=== PATIENT | female | born 1985 | race American Indian/Alaskan Native ===

== ENCOUNTER 2017-03-24 07:41 | Inpatient (IN) | payer SELFPAY ==
[~2017-03-24 07:41] MED LIST: ANCEF/STERILE WATER 2 GM/20 ML 2 GM/20 ML SYRINGE IV NR; APRESOLINE IV PRN; LOVENOX SUB-Q NR; NORCO PO PRN; REGLAN IV PRN; ZOFRAN IV PRN
[2017-03-24] MEDS ORDERED: WATER FOR IRRIG STERILE IR ONE (07:56)
[2017-03-24] MEDS ORDERED: FLAGYL 500 MG/100 ML 500 MG/100 ML BAG IV NR (09:00)
--- NOTE | 2017-03-24 09:16 | Anesthesia Day of Surgery ---
Anesthesia Day of Surgery - Day of Surgery Patient Examined: Yes Patient H&P Reviewed: Yes Patient is NPO: Yes
--- NOTE | 2017-03-24 09:16 | Anesthesia Consultation ---
Anesthesia Consult and Med Hx Date of service: 03/24/17 - Airway Anesthetic Teeth Evaluation: Good ROM Head & Neck: Adequate Mental/Hyoid Distance: Adequate Mallampati Class: Class II Intubation Access Assessment: Probably Good - Pulmonary Exam CTA: Yes - Cardiac Exam Cardiac Exam: RRR - Pre-Operative Health Status ASA Pre-Surgery Classification: ASA3 Proposed Anesthetic Plan: General - Pulmonary Hx Sleep Apnea: Yes (uses cpap) - Cardiovascular System Hx Heart Murmur: Yes - Central Nervous System Hx Psychiatric Problems: No - Other Systems Hx Alcohol Use: Yes (occa) Hx Substance Use: No Hx Cancer: No Hx Obesity: Yes
[2017-03-24] MEDS ORDERED: MARCAINE 0.5% 30 ML INFILTRATI ONE ×2 (09:23→11:09)
[2017-03-24] MEDS ORDERED: XYLOCAINE 1% 20 mL ONE ×2 (09:23→11:10)
[2017-03-24 09:33] LABS: Bacteria,Urine 1+ /HPF (Negative); Bilirubin,Urine NEG (Negative); Blood,Urine SM (Negative); Ketones,Urine TR mg/dL (Negative); Leukocyte Esterase,Urine NEG (Negative); Mucus,Urine FEW /HPF; Nitrite,Urine NEG (Negative); Protein,Urine <15 mg/dL mg/dL (Negative); Urobilinogen,Urine < 2.0 mg/dL (<2.0); WBC,Urine < 1.0 /HPF (0.0-6.0)
[2017-03-24] MEDS: LACTATED RINGERS 1,000 ML IV SCH ×2 (09:40→14:47)
[2017-03-24] MEDS ORDERED: DIPRIVAN 10 MG/ML IV ONE (09:44)
[2017-03-24] MEDS ORDERED: SUBLIMAZE ONE (09:45)
[2017-03-24] MEDS ORDERED: DECADRON ONE (09:46)
[2017-03-24] MEDS ORDERED: ZEMURON IV ONE ×2 (09:46→11:05)
[2017-03-24] MEDS ORDERED: XYLOCAINE MPF 2% ONE (09:46)
[2017-03-24] MEDS ORDERED: DILAUDID IV NR (10:00)
[2017-03-24] MEDS ORDERED: VERSED IV NR (10:00)
[2017-03-24] MEDS ORDERED: PEPCID IV NR (10:00)
[2017-03-24] MEDS ORDERED: TRANSDERM-SCOP TD NR (10:00)
[2017-03-24] MEDS ORDERED: NACL 0.9% IR ONE (10:43)
[2017-03-24] MEDS ORDERED: MARCAINE 0.5% INFILTRATI ONE ×2 (10:43)
[2017-03-24] MEDS ORDERED: XYLOCAINE 1% 20 mL INFILTRATI ONE ×2 (10:44)
[2017-03-24] MEDS ORDERED: NACL 0.9% 1000 ML 1,000 ML ONE (10:47)
[2017-03-24] MEDS ORDERED: NACL 0.9% 1000 ML IR ONE (10:48)
[2017-03-24] MEDS ORDERED: NEOSTIGMINE ONE (11:08)
[2017-03-24] MEDS ORDERED: ROBINUL ONE ×2 (11:08→11:36)
[2017-03-24] MEDS ORDERED: ZOFRAN ONE (11:08)
[2017-03-24] MEDS ORDERED: LACTATED RINGERS 1,000 ML ONE (11:51)
[2017-03-24] MEDS ORDERED: DILAUDID ONE (11:53)
[2017-03-24] MEDS: DILAUDID IV PRN ×5 (12:33→22:43)
--- NOTE | 2017-03-24 12:41 | Post Anesthesia Evaluation ---
- Post Anesthesia Evaluation Patient Participated: Yes Airway Patent: Yes Stable Respiratory Function: Yes Temp > 96.8F: Yes Pain Manageable: Yes Adequeate Hydration: Yes Anesthesia Complications: No
[2017-03-24] MEDS ORDERED: BENADRYL ONE (12:59)
[2017-03-24] MEDS ORDERED: BENADRYL IV ONE (13:01)
[2017-03-24] MEDS ORDERED: TORADOL ONE (13:06)
[2017-03-24] MEDS ORDERED: TORADOL IV ONE (14:06)
[2017-03-24] MEDS ORDERED: TRANSDERM-SCOP TD SCH (15:00)
[2017-03-24] MEDS: MYLICON PO PRN (20:05)
[2017-03-24] MEDS: BENADRYL IV PRN (21:03)
[2017-03-24] MEDS ORDERED: LACTATED RINGERS 1,000 ML IV SCH (22:00)
[2017-03-25] MEDS: DILAUDID IV PRN ×4 (02:46→13:39)
[2017-03-25 05:33] LABS: Basophils % (Auto) 0.2 % (0.0-1.8); Eosinophils % (Auto) 0.1 % (0.0-4.3); Hematocrit 41.5 % (30.3-42.9); Hemoglobin 13.6 gm/dl (10.1-14.3); Mean Corpuscular HGB Conc 33 % (30-34); Mean Corpuscular Hemoglobin 28 pg (28-32); Mean Corpuscular Volume 86 fl (79-97); Platelet Count 196 K/mm3 (140-440); Red Cell Distribution Width 14.2 % (13.2-15.2); White Blood Count 17.3 K/mm3 (4.5-11.0)
[2017-03-25 05:52] LABS: Anion Gap 18 mmol/L; BUN/Creatinine Ratio 24; Blood Urea Nitrogen 12 mg/dL (7-17); Calcium 8.9 mg/dL (8.4-10.2); Carbon Dioxide 24 mmol/L (22-30); Chloride 101.6 mmol/L (98-107); Glucose 94 mg/dL (65-100); Potassium 4.1 mmol/L (3.6-5.0); Sodium 139 mmol/L (137-145)
[2017-03-25] MEDS: MYLICON PO PRN (06:21)
[2017-03-25] MEDS ORDERED: LOVENOX SUB-Q SCH (10:00)
[2017-03-25] MEDS: BENADRYL IV PRN (10:08)
--- NOTE | 2017-03-25 12:04 | Progress Note ---
Assessment and Plan 32 yo F w/ PMH sleep apnea now s/p laparoscopic sleeve gastrectomy done 2016. 1. POD 1 lap gastric sleeve - Reports feeling well - Denies n/v, constipation, diarrhea - Zofran 4mg q4h and scopolamine patch, Dilaudid for pain management - Continue to ambulate every 1-2 hrs and every 4 hrs during the night - LR for hydration 2. Nutrition - Efrem I diet - Encouraged to start sipping liquids - If tolerating well, ok to discharge home DVT and GI prophylaxis. Dispo: Follow up at the end of this week for wound check, follow up with Dr. Slater in 2 wks and as scheduled. Subjective Date of service: 03/25/17 Patient Reports: Positive: no new complaints, feels better, voiding w/o difficulty, afebrile. Negative: nausea, vomiting, shortness of breath Narrative: Pt reports she is feeling well. Denies nausea, vomiting, constipation. Will start to sip liquids and see if she can tolerate them. Objective Vital Signs - 12hr 03/25/17 03/25/17 05:22 08:00 Temperature 96.7 F L 97.3 F L Pulse Rate 66 64 Respiratory 20 18 Rate Blood Pressure 122/68 Blood Pressure 105/56 [Right] O2 Sat by Pulse 98 94 Oximetry - General physical appearance well developed, well nourished, no distress, obese - Eyes normal occular movement - Neck trachea midline, no lymphadectomy - Respiratory normal expansion, normal respiratory effort - Abdomen soft, not tender, not distended, not masses, not rebound, not guarding, surgical scars (Umbilical dressing saturated with blood. ) - Integumentary no rash - Psychiatric oriented to time, oriented to person, oriented to place, speech is normal - Labs 03/25/17 05:13 03/25/17 05:13 Diabetes panel 03/25/17 Range/Units 05:13 Sodium 139 (137-145) mmol/L Potassium 4.1 (3.6-5.0) mmol/L Chloride 101.6 (98-107) mmol/L Carbon Dioxide 24 (22-30) mmol/L BUN 12 (7-17) mg/dL Creatinine 0.5 L (0.7-1.2) mg/dL Glucose 94 (65-100) mg/dL Calcium 8.9 (8.4-10.2) mg/dL Calcium panel 03/25/17 Range/Units 05:13 Calcium 8.9 (8.4-10.2) mg/dL Pituitary panel 03/25/17 Range/Units 05:13 Sodium 139 (137-145) mmol/L Potassium 4.1 (3.6-5.0) mmol/L Chloride 101.6 (98-107) mmol/L Carbon Dioxide 24 (22-30) mmol/L BUN 12 (7-17) mg/dL Creatinine 0.5 L (0.7-1.2) mg/dL Glucose 94 (65-100) mg/dL Calcium 8.9 (8.4-10.2) mg/dL Adrenal panel 03/25/17 Range/Units 05:13 Sodium 139 (137-145) mmol/L Potassium 4.1 (3.6-5.0) mmol/L Chloride 101.6 (98-107) mmol/L Carbon Dioxide 24 (22-30) mmol/L BUN 12 (7-17) mg/dL Creatinine 0.5 L (0.7-1.2) mg/dL Glucose 94 (65-100) mg/dL Calcium 8.9 (8.4-10.2) mg/dL
--- NOTE | 2017-03-25 12:43 | Discharge Summary ---
Providers - Providers Date of Admission: 03/24/17 07:41 Attending physician: DAWIT ROBERTO Hospitalization Condition: Good Procedures: laparoscopic gastric band removal, conversion to a gastric sleeve. Hospital course: 32y.o. F presented to same day surgery for a lap band removal with conversion to a laparoscopic sleeve gastrectomy. She tolerated the procedure well. On POD 1 she tolerated liquids and denies any vomiting. She ambulated well. She was discharged on POD 1 without issues. Disposition: DC-01 TO HOME OR SELFCARE Core Measure Documentation - Palliative Care Palliative Care/ Comfort Measures: Not Applicable - Core Measures Any of the following diagnoses?: none Exam - Physical Exam Narrative exam: Abd: soft, tender at incisions sites. no rebound no guarding, dressings: minimal blood stained. - Constitutional Vitals: Temp Pulse Resp BP Pulse Ox 97.3 F L 64 18 105/56 94 03/25/17 08:00 03/25/17 08:00 03/25/17 08:00 03/25/17 08:00 03/25/17 08:00 Plan Activity: other (no lifting >15lbs ) Diet: clear liquids (sugar free ) Additional Instructions: Follow up for wound check Follow up with: TARSHA CURRIE [Other] - 7 Days
[2017-03-25 13:53] VITALS: BP 108/58
== END 2017-03-25 17:00 | disposition home or self-care (01) | DRG 621 ==
LOC: 3A 07:41 → 3B-SURG 12:32 → EDSTATUS 13:45
PROVIDERS: ADMIT Specialist; ATTEND Specialist
PROC: 0DP64CZ Removal of Extraluminal Device from Stomach, Percutaneous Endoscopic Approach (ICD-10-PCS; principal; 2017-03-24)
PROC: 0DB64Z3 Excision of Stomach, Percutaneous Endoscopic Approach, Vertical (ICD-10-PCS; 2017-03-24)
PROC: 0BQT4ZZ Repair Diaphragm, Percutaneous Endoscopic Approach (ICD-10-PCS; 2017-03-24)
DX: E66.01 Morbid (severe) obesity due to excess calories (principal); Z68.43 Body mass index [BMI] 50.0-59.9, adult
CPT/HCPCS: 36415; 80048; 81001; 81025; 83735; 85025; 88307; C9250; J0690; J1100; J1170; J1200; J1650; J1885; J2250; J2405; J2704; J2710; J3010; J7030; J7120